=== PATIENT | female | born 1985 | race Caucasian/White ===

== ENCOUNTER 2017-10-24 19:52 | Emergency (ER) | payer OTHER ==
[~2017-10-24] VITALS: Ht 165.1 cm; Wt 72.1 kg
[2017-10-24 19:55] VITALS: Ht 165.1 cm; Wt 72.1 kg
[2017-10-24 21:10] LABS: UA SPECIFIC GRAVITY >=1.030 (1.005-1.035); microscopic required? YES; urine erythrocyte 2+ (NEGATIVE)
[2017-10-24 22:04] VITALS: BP 100/54
== END 2017-10-24 22:04 | disposition home or self-care (01) ==
LOC: ED 19:52
PROVIDERS: Emergency Medicine
DX: E86.0 Dehydration (principal); R11.2 Nausea with vomiting, unspecified; R19.7 Diarrhea, unspecified; J45.909 Unspecified asthma, uncomplicated; R50.9 Fever, unspecified
CPT/HCPCS: J1885; J2405; J7030

== ENCOUNTER 2017-10-25 22:05 | Inpatient (IN) | payer OTHER ==
[~2017-10-25] VITALS: Ht 167.6 cm; Wt 71.7 kg
[2017-10-25 22:10] VITALS: Ht 167.6 cm; Wt 71.7 kg
[2017-10-25 22:47] LABS: BASOPHIL % 0.2 % (0-2); PLATELET COUNT 187 x10^3mcL (130-400)
[2017-10-25 22:57] LABS: CALCIUM 9.2 mg/dL (8.5-10.1); CARBON DIOXIDE 20.6 mmol/L (21-32); CREATININE SERUM 1.3 mg/dL (0.6-1.0); POTASSIUM SERUM 3.1 mmol/L (3.5-5.1); RED CELL DISTRIBUTION WIDTH 16.8 % (11.5-14.5)
[2017-10-25 23:01] LABS: ALBUMIN 3.6 g/dL (3.4-5.0); BILIRUBIN TOTAL 0.52 mg/dL (0.20-1.00)
[2017-10-25 23:02] LABS: TOTAL PROTEIN, SERUM 9.1 g/dL (6.4-8.2)
[2017-10-26 00:24] LABS: MAGNESIUM 2.2 mg/dL (1.8-2.4); PHOSPHOROUS 2.6 mg/dL (2.5-4.9)
[2017-10-26 00:40] LABS: T3 TOTAL 0.42 ng/mL
[2017-10-26 00:50] LABS: FREE T4 1.11 ng/dL (0.76-1.46); FREE THYROXINE INDEX 2.6 ug/dL (1.4-4.5); T4(THYROXINE) 7.1 ug/dL (4.7-13.3)
[2017-10-26 00:55] VITALS: BP 113/78
[2017-10-26 03:01] LABS: UA SPECIFIC GRAVITY 1.025 (1.005-1.035); microscopic required? YES; urine erythrocyte 2+ (NEGATIVE)
[2017-10-26 03:11] LABS: AMPHETAMINE QUAL UR NONE DETECTED (See below)
[2017-10-26 05:59] LABS: BASOPHIL % 0.2 % (0-2); PLATELET COUNT 157 x10^3mcL (130-400)
[2017-10-26 06:01] LABS: RED CELL DISTRIBUTION WIDTH 16.9 % (11.5-14.5)
[2017-10-26 06:05] VITALS: BP 103/54
[2017-10-26 06:11] LABS: CALCIUM 8.5 mg/dL (8.5-10.1); CARBON DIOXIDE 18.5 mmol/L (21-32); CHLORIDE SERUM 102 mmol/L (98-107); GFR1 > 60 mL/min; GLUCOSE SERUM 97 mg/dL (74-106); MAGNESIUM 2.6 mg/dL (1.8-2.4); PHOSPHOROUS 2.6 mg/dL (2.5-4.9); SODIUM SERUM 132 mmol/L (136-145)
[2017-10-26 08:53] VITALS: BP 101/56
[2017-10-26 16:36] VITALS: BP 100/59
[2017-10-26 21:07] VITALS: BP 96/60
[2017-10-27 05:44] VITALS: BP 103/59
[2017-10-27 06:59] LABS: CALCIUM 8.1 mg/dL (8.5-10.1); CARBON DIOXIDE 19.5 mmol/L (21-32); CHLORIDE SERUM 102 mmol/L (98-107); CREATININE SERUM 0.7 mg/dL (0.6-1.0); GFR1 > 60 mL/min; GLUCOSE SERUM 90 mg/dL (74-106); MAGNESIUM 1.7 mg/dL (1.8-2.4); PHOSPHOROUS 2.4 mg/dL (2.5-4.9); POTASSIUM SERUM 3.3 mmol/L (3.5-5.1); SODIUM SERUM 132 mmol/L (136-145)
[2017-10-27 07:10] LABS: BASOPHIL % 0.4 % (0-2); PLATELET COUNT 160 x10^3mcL (130-400)
[2017-10-27 07:16] LABS: RED CELL DISTRIBUTION WIDTH 16.7 % (11.5-14.5)
[2017-10-27 08:30] VITALS: BP 92/87
[2017-10-27] MEDS ORDERED: CIPRO500 MG PO (11:48)
[2017-10-27 13:30] VITALS: BP 92/87
== END 2017-10-27 15:28 | disposition home or self-care (01) | DRG 249 ==
LOC: ED 22:05 → MU 23:22
PROVIDERS: Internal Medicine; Specialist
DX: K52.9 Noninfective gastroenteritis and colitis, unspecified (principal); N17.0 Acute kidney failure with tubular necrosis; E87.1 Hypo-osmolality and hyponatremia; E86.0 Dehydration; J45.909 Unspecified asthma, uncomplicated; E83.41 Hypermagnesemia; E87.6 Hypokalemia; Z98.891 History of uterine scar from previous surgery
CPT/HCPCS: 83880; 84439; 87046; 87046-59; J1885; J2405; J2765; J3010; J3475; J3480; J7030; J7050; Q0092